=== PATIENT | female | born 2000 | race Caucasian/White ===

== ENCOUNTER 2018-02-14 21:11 | Emergency (ER) | payer SELFPAY ==
[2018-02-14 21:12] VITALS: BMI 38.0
[2018-02-14 21:25] VITALS: BP 111/76; PULSE 90; TEMP 98.4; O2SAT 99
--- NOTE | 2018-02-14 22:00 | C.PDOC ---
History Of Present Illness 17 year old female presents to the ER with a complaint of sore throat for the past 5 days. Patient took naproxen yesterday with no relief. Denies fever, chills, difficulty breathing, or difficulty swallowing. Time Seen by Provider: 02/14/18 21:39 Chief Complaint (Nursing): ENT Problem History Per: Patient History/Exam Limitations: None Onset/Duration Of Symptoms: Days Current Symptoms Are (Timing): Still Present Quality (Mouth/Throat): Tenderness Symptoms Have Been: Continuous Anticoagulant/Antiplatlet Use?: No Past Medical History Reviewed: Historical Data, Nursing Documentation, Vital Signs Vital Signs: Last Vital Signs Temp 98.4 F 02/14/18 21:23 Pulse 90 02/14/18 21:23 Resp 20 02/14/18 22:35 BP 111/76 02/14/18 21:23 Pulse Ox 99 02/15/18 00:01 Family History: States: Unknown Family Hx - Social History Hx Tobacco Use: No Hx Alcohol Use: No Hx Substance Use: No - Immunization History Hx Tetanus Toxoid Vaccination: Yes Hx Influenza Vaccination: Yes Hx Pneumococcal Vaccination: No Review Of Systems Constitutional: Negative for: Fever, Chills ENT: Positive for: Throat Pain. Negative for: Other (Difficulty swallowing) Respiratory: Negative for: Wheezing, Other (Difficulty breathing) Gastrointestinal: Negative for: Nausea, Vomiting Physical Exam - Physical Exam Appears: Well, Non-toxic, No Acute Distress Skin: Normal Color, Warm, Dry Head: Atraumatic, Normacephalic Eye(s): bilateral: Normal Inspection, EOMI Ear(s): Bilateral: Normal Nose: Normal Oral Mucosa: Moist Throat: Erythema, No Exudate, Other (Tonsillar erythema and swelling) Neck: Normal, Normal ROM, Supple Lymphatic: Adenopathy (Submandibular) Chest: Symmetrical, No Tenderness Cardiovascular: Rhythm Regular Respiratory: Normal Breath Sounds, No Rales, No Rhonchi, No Wheezing Extremity: Normal ROM (x4) Neurological/Psych: Oriented x3, Normal Speech ED Course And Treatment O2 Sat by Pulse Oximetry: 99 (Room air) Pulse Ox Interpretation: Normal Progress Note: Amoxicillin, decadron, motrin, and viscous lidocaine administered. Patient reports improvement of pain, she is resting comfortably in no distress. Tolerating PO, vitals WNL. No difficulty breathing or swallowing. PT advised to follow up with PMD in 1-2 days and return precautions given. Disposition - Disposition Referrals: El Goldman MD [Staff Provider] - Disposition: HOME/ ROUTINE Disposition Time: 22:12 Condition: STABLE Additional Instructions: Please follow up with your doctor or clinic in 2-3 days for further evaluation. Give your child medications as prescribed. Return to the emergency department at any time if symptoms persist or worsen. Prescriptions: Amoxicillin 875 mg PO BID #14 tablet Ibuprofen [Motrin] 600 mg PO Q6 PRN #20 tab PRN Reason: Pain, Mild (1-3) Instructions: Sore Throat, Adult (DC) Forms: varinode (Khmer) - Clinical Impression Clinical Impression: Acute bacterial tonsillitis - PA / MAT[employer] DEVELOPER / Resident Statement MD/DO has reviewed & agrees with the documentation as recorded. - Scribe Statement The provider has reviewed the documentation as recorded by the Scribe Darren Jacobs All medical record entries made by the Scribe were at my direction and personally dictated by me. I have reviewed the chart and agree that the record accurately reflects my personal performance of the history, physical exam, medical decision making, and the department course for this patient. I have also personally directed, reviewed, and agree with the discharge instructions and disposition.
[2018-02-14] MEDS ORDERED: Dexamethasone 4 mg/1 ml IM STA (22:03)
[2018-02-14] MEDS ORDERED: Dexamethasone 4 mg/1 ml ONE (22:09)
[2018-02-14 22:36] VITALS: RESP 20
== END 2018-02-14 22:35 | disposition home or self-care (01) ==
LOC: C.ER 21:11
DX: J03.90 Acute tonsillitis, unspecified (principal)
CPT/HCPCS: 96372; 99283; J1100

== ENCOUNTER 2018-08-20 13:43 | Emergency (ER) | payer SELFPAY ==
[2018-08-20 13:49] VITALS: BMI 32.5
[2018-08-20 13:53] VITALS: BP 123/81; PULSE 100; RESP 18; TEMP 97.9; O2SAT 100
[2018-08-20] MEDS ORDERED: Sodium Chloride 0.9% 1,000 ML IV ONE (14:37)
--- NOTE | 2018-08-20 14:37 | C.PDOC ---
History Of Present Illness CC " abdominal pain, sore throat, cough with blood" HPI: Patient is a 18 year old female who presents for 2 week history of cold li ke symptoms including fevers, sore throat, nasal congestion, dry cough. She states she does not have any sputum with her cough, but in the morning and nights, she has coughing fits that last 3-5 minutes with blood clots. She is currently 17.5 weeks . She states she has left lower abdominal pain that is present when she coughs, and when she lies on that side. She states she has has severe nausea and vomiting since she was 5 weeks . She states she has streaks of blood in her vomiting. She denies vaginal bleeding. She states that her entire family was recent sick with similar symptoms. OB: [facility] PMH: none, no history of asthma PSH: none Home meds: Tylenol, vitamins Allergies: seafood - throat closes <Lori Rg - Last Filed: 08/20/18 18:59> <Lori Rg - Last Filed: 08/20/18 18:59> <Luis Queen - Last Filed: 08/20/18 20:20> Time Seen by Provider: 08/20/18 14:15 Chief Complaint (Nursing): Abdominal Pain Past Medical History Vital Signs: Last Vital Signs Temp 97.9 F 08/20/18 13:49 Pulse 100 H 08/20/18 13:49 Resp 18 08/20/18 13:49 BP 123/81 08/20/18 13:49 Pulse Ox 100 08/20/18 13:49 Family History: States: Unknown Family Hx - Social History Hx Tobacco Use: No Hx Alcohol Use: No Hx Substance Use: No - Immunization History Hx Tetanus Toxoid Vaccination: No Hx Influenza Vaccination: No Hx Pneumococcal Vaccination: No <Lori Rg - Last Filed: 08/20/18 18:59> Vital Signs: Last Vital Signs Temp 97.9 F 08/20/18 13:49 Pulse 100 H 08/20/18 13:49 Resp 18 08/20/18 13:49 BP 123/81 08/20/18 13:49 Pulse Ox 100 08/20/18 19:01 <Luis Queen - Last Filed: 08/20/18 20:20> Review Of Systems Constitutional: Positive for: Fever. Negative for: Weakness, Malaise ENT: Positive for: Nose Congestion Cardiovascular: Negative for: Chest Pain, Palpitations Respiratory: Positive for: Cough, Shortness of Breath Gastrointestinal: Positive for: Nausea, Vomiting, Abdominal Pain Genitourinary: Negative for: Dysuria, Frequency Neurological: Negative for: Weakness, Confusion Psych: Negative for: Anxiety, Depression <Lori Rg - Last Filed: 08/20/18 18:59> Physical Exam - Physical Exam Appears: Other (Patient has mask on, is coughing intermittently. ) Skin: Warm, Dry Head: Atraumatic, Normacephalic Eye(s): bilateral: PERRL, EOMI Nose: Normal Oral Mucosa: Dry Throat: Normal Neck: No Midline Cervical Tenderness Cardiovascular: Rhythm Regular, No Friction Rub, No Murmur, No JVD Respiratory: Normal Breath Sounds, No Rales, No Rhonchi, No Stridor, No Wheezing, No Plerual Rub Gastrointestinal/Abdominal: Bowel Sounds, Soft, Tenderness (Mild left lower quadrant tenderness), No Organomegaly, No Mass, No Distention Rectal: Normal Exam, No Melena, No Hemorrhoids, No Tenderness, Other (Brown stool) Back: CVA Tenderness (Questionable left CVA tenderness, no right CVA tenderness ) Extremity: No Tenderness, No Pedal Edema, No Calf Tenderness Pulses: Left Dorsalis Pedis: Normal, Right Dorsalis Pedis: Normal <Lori Rg - Last Filed: 08/20/18 18:59> ED Course And Treatment - Laboratory Results Result Diagrams: 08/20/18 15:52 08/20/18 15:52 O2 Sat by Pulse Oximetry: 100 - CT Scan/US Obstetrics CT/US Interpretation: Single living fetus with composite sonographic age of 17 weeks 4 days. Estimated heart rate 127.8 beats per min. <Lori Rg - Last Filed: 08/20/18 18:59> - Laboratory Results Result Diagrams: 08/20/18 15:52 08/20/18 15:52 Lab Results: PT 13.2 SECONDS (9.7-12.2) H 01/07/19 15:52 INR 1.2 08/20/18 15:52 APTT 31 SECONDS (21-34) 08/20/18 15:52 Total Bilirubin 0.9 mg/dL (0.2-1.3) 08/20/18 15:52 AST 30 U/L (14-36) 08/20/18 15:52 ALT 31 U/L (9-52) 08/20/18 15:52 Alkaline Phosphatase 78 U/L (38-126) 08/20/18 15:52 Total Protein 7.4 g/dL (6.3-8.3) 08/20/18 15:52 Albumin 4.3 g/dL (3.5-5.0) 08/20/18 15:52 Globulin 3.2 gm/dL (2.2-3.9) 08/20/18 15:52 Albumin/Globulin Ratio 1.3 (1.0-2.1) 08/20/18 15:52 Lipase 157 U/L (23-300) 08/20/18 15:52 <Luis Queen - Last Filed: 08/20/18 20:20> Medical Decision Making Medical Decision Making: Patient refused CXR since she is . Patient understands that we cannot rule out TB, pneumonia, bronchitis without CXR. Patient refuses urine and wants to sign out against medical advice. Patient understand that we cannot rule out tuberculosis, pneumonia, bronchitis since she refuses CXR. On repeat evaluation, patient states she is feeling better and would like to go home. Patient is aware of risks of leaving against medical advice. <Lori Rg - Last Filed: 08/20/18 18:59> Medical Decision Making: pt seen with resident. pt with several complaints. llq abd pain, hememesis, hemopytisis. in er, requests cxr ro tb, pna. pt refuses. labs neg pain improved. tolerating po. iup confirmed. advise outpt fu return rpecautions. declines fur ther eval, obs in er. <Luis Queen - Last Filed: 08/20/18 20:20> Disposition - Disposition Disposition Time: 16:40 <Lori Rg - Last Filed: 08/20/18 18:59> <Luis Queen - Last Filed: 08/20/18 20:20> - Disposition Referrals: [facility] [Outside] [facility] [Outside] Disposition: AGAINST MEDICAL ADVICE Condition: IMPROVED Additional Instructions: please follow up with your doctor/clinic. return to er with worsening symptoms or concerns. Instructions: Threatened Miscarriage, Acute Abdomen (Belly Pain), Gastrointestinal Bleeding (DC), Coughing up Blood, Leaving Against Medical Advice Forms: [employer]un[employer] (Vietnamese) - Clinical Impression Clinical Impression: Threatened , Abdominal pain, Left against medical advice, Coughing blood
[2018-08-20 15:58] LABS: BASO % 0.2 % (0.0-2.0); EOS # 0.1 K/uL (0.0-0.7); EOS % 1.1 % (0.0-4.0); HEMOGLOBIN 12.7 g/dL (11.0-16.0); LYMPH # 0.9 K/uL (1.0-4.3); LYMPH % 11.1 % (20.0-40.0); MEAN CORPUSCULAR HGB CONC 34.3 g/dL (33.0-37.0); MEAN PLATELET VOLUME 9.6 fL (7.2-11.7); MONO # 0.8 K/uL (0.0-0.8); MONO % 9.1 % (0.0-10.0); NEUT # 6.6 K/uL (1.8-7.0); NEUT % 78.5 % (50.0-75.0); RBC 4.39 Mil/uL (3.80-5.20); RED CELL DISTRIBUTION WIDTH 14.5 % (11.5-14.5); WHITE BLOOD COUNT 8.4 K/uL (4.8-10.8)
[2018-08-20 16:00] LABS: MEAN CELL VOLUME 84.6 fL (81.0-99.0)
[2018-08-20 16:09] LABS: INR 1.2; PROTHROMBIN TIME 13.2 SECONDS (9.7-12.2)
[2018-08-20 16:23] LABS: ALB/GLOB RATIO 1.3 (1.0-2.1); ALBUMIN 4.3 g/dL (3.5-5.0); ALT/SGPT 31 U/L (9-52); AST/SGOT 30 U/L (14-36); BLOOD UREA NITROGEN 5 mg/dL (7-17); CALCIUM 9.5 mg/dl (8.6-10.4); GFR NON-AFRICAN AMERICAN > 60; INFLUENZA A B NEGATIVE FOR FLU A/B (NEGATIVE); LIPASE 157 U/L (23-300)
--- NOTE | 2018-08-20 16:36 | US ---
Indication: abd pain/left sided/ Comparison: None Technique: Real-time ultrasound was performed through the pelvis. Findings: There is a single living fetus in breech presentation. Amniotic fluid volume is within normal limits. Anterior placenta. The placenta is not previa. There are no adnexal masses or cysts evident. Cervix length measures approximately 3 cm. Measurements and calculations: Fetus has a composite sonographic age of 17 weeks 4 days. This calculation is based on the biparietal diameter, head circumference, abdominal circumference, and femur length. Estimated heart rate 127.8 beats per min. Estimated weight 200.4 g. Impression: Single living fetus with a composite sonographic age of 17 weeks 4 days. Estimated heart rate 127.8 beats per min. The study was performed for the emergent evaluation of pain, and the whole anatomic survey of the fetus was not performed. This should be performed on an outpatient elective basis between 16 - 18 weeks of gestational age.
== END 2018-08-20 16:50 | disposition left against medical advice (07) ==
LOC: C.ER 13:43
DX: O20.0 Threatened abortion (principal); R10.32 Left lower quadrant pain; R04.2 Hemoptysis; Z3A.17 17 weeks gestation of pregnancy
CPT/HCPCS: 76815; 80053; 83690; 85025; 85610; 85730; 86850; 86900; 87070; 87430; 87804; 99283; G0328